=== PATIENT | male | born 1935 | race Caucasian/White ===

== ENCOUNTER 2017-12-07 05:45 | Inpatient (IN) ==
[2017-12-07] MEDS ORDERED: POTASSIUM CHLORIDE RIDER 10 MEQ in PREMIX 1 EACH IV PRN (07:39)
[2017-12-07] MEDS ORDERED: diphenhydrAMINE CAP 25 MG CAPSULE PO ONE (07:39)
[2017-12-07] MEDS ORDERED: MAGNESIUM SULF RIDER 2 GM in PREMIX 1 EACH IV PRN (07:39)
[2017-12-07] MEDS ORDERED: DIAZEPAM 5 MG TABLET PO ONE (07:39)
[2017-12-07] MEDS ORDERED: ASPIRIN 325 MG TABLET PO ONE (07:40)
[2017-12-07] MEDS ORDERED: DEXTROSE 5% NACL 0.22% 1,000 ML IV SCH (08:00)
[2017-12-07] MEDS ORDERED: DEXTROSE 5% NACL 0.45% 1,000 ML IV SCH (08:00)
[2017-12-07] MEDS ORDERED: HEPARIN/NACL 0.9% 2 UNITS/ML 2,000 ML IV ONE (09:22)
[2017-12-07] MEDS ORDERED: LIDOCAINE 2%/EPI 20 ML VIAL ONE (09:34)
[2017-12-07] MEDS ORDERED: VERAPAMIL 5 MG/2 ML VIAL ONE (09:43)
[2017-12-07] MEDS ORDERED: NITROGLYCERIN DRIP 50 MG/250 ML BOTTLE IV ONE (09:43)
[2017-12-07] MEDS ORDERED: LIDOCAINE 1% 20 ML VIAL ONE (10:25)
[2017-12-07] MEDS ORDERED: fentaNYL 100 MCG/2 ML VIAL ONE (10:29)
[2017-12-07] MEDS ORDERED: MIDAZOLAM 2 MG/2 ML VIAL ONE (10:29)
[2017-12-07] MEDS ORDERED: ENOXAPARIN 60 MG/0.6 ML SYRINGE ONE (10:54)
[2017-12-07] MEDS ORDERED: ATROPINE 1 MG/10 ML SYRINGE ONE (11:05)
[2017-12-07] MEDS ORDERED: DOPamine 800 MG/250 ML PREMIX IV ONE (11:05)
[2017-12-07] MEDS ORDERED: DOPamine 800 MG/250 ML PREMIX IV SCH (11:08)
[2017-12-07] MEDS ORDERED: EPTIFIBATIDE 75 MG/100 ML BOTTLE IV ONE (11:24)
[2017-12-07] MEDS ORDERED: EPTIFIBATIDE 20,000 MCG/10 ML VIAL ONE (11:24)
[2017-12-07] MEDS ORDERED: EPTIFIBATIDE 75 MG/100 ML BOTTLE IV SCH (11:33)
[2017-12-07] MEDS ORDERED: CLOPIDOGREL 300 MG TABLET ONE (11:48)
[2017-12-07] MEDS ORDERED: HYDROmorphone 2 MG/1 ML VIAL IV PRN (12:21)
[2017-12-07] MEDS ORDERED: ONDANSETRON 4 MG/2 ML VIAL IV PRN (12:21)
[2017-12-07] MEDS ORDERED: guaiFENesin/DM ER 600-30 MG TABLET PO PRN (13:23)
[2017-12-07] MEDS ORDERED: ACETAMINOPHEN 325 MG TABLET PO PRN (13:23)
[2017-12-07] MEDS ORDERED: BISACODYL 5 MG TABLET PO PRN (13:23)
[2017-12-07] MEDS: CARVEDILOL 12.5 MG TABLET PO SCH (17:05)
[2017-12-07] MEDS ORDERED: ZALEPLON 5 MG CAPSULE PO SCH (21:00)
[2017-12-07] MEDS ORDERED: metFORMIN 500 MG TABLET PO SCH (21:00)
[2017-12-07] MEDS ORDERED: SIMVASTATIN 20 MG TABLET PO SCH (21:00)
[2017-12-07] MEDS: MULTIVITAMIN (BEROCCA) TABLET PO SCH (21:07)
[2017-12-07] MEDS: sitaGLIPtin 25 MG TABLET PO SCH (21:08)
[2017-12-08 05:21] LABS: Basophils % 0.5 % (0.0-0.8); Eosinophils # 0.2 10*3/uL (0.0-0.87); Eosinophils % 3.3 % (0.00-10.9); Hematocrit 41.5 VOL% (42.0-52.0); Immature Granulocytes % 0.3 %; Immature Granulocytes Absolute 0.02 #; Lymphocytes # 1.9 10*3/uL (1.4-4.0); Lymphocytes % 26.6 % (21.2-54.2); Mean Corpuscular HGB Conc 33.7 GM/DL (32-36); Mean Corpuscular Hemoglobin 29 PG (27-34); Mean Corpuscular Volume 85.7 FL (87-102); Mean Platelet Volume 10.2 FL (9.6-12.0); Monocytes # 0.7 10*3/uL (0.11-0.8); Monocytes % 9.2 % (1.7-12.7); Neutrophils # 4.4 10*3/uL (1.4-7.4); Neutrophils % 60.1 % (38.7-73.9); Platelet Count 216 T/CUMM (130-400); Red Blood Count 4.84 MC/CUMM (3.8-5.5); Red Cell Distribution Width 13.3 % (9.3-17.3); White Blood Count 7.3 T/CUMM (4-12)
[2017-12-08 06:00] LABS: Calcium 8.5 MG/DL (8.5-10.1); Osmolality,Calculated 282.5 MOS/KG (273-304); Potassium 4.1 MMOL/L (3.5-5.1); Troponin I Only 0.018 NG/ML (0.00-0.045)
[2017-12-08] MEDS: MULTIVITAMIN (BEROCCA) TABLET PO SCH (08:27)
[2017-12-08] MEDS: CARVEDILOL 12.5 MG TABLET PO SCH (08:27)
[2017-12-08] MEDS: sitaGLIPtin 25 MG TABLET PO SCH (08:31)
[2017-12-08] MEDS ORDERED: FLUTICASONE 50 MCG NASAL SPRAY 16 GM BOTTLE BOTH NARES SCH (09:00)
[2017-12-08] MEDS ORDERED: NAPROXEN 250 MG TABLET PO SCH (09:00)
[2017-12-08] MEDS ORDERED: LORATADINE 10 MG TABLET PO SCH (09:00)
[2017-12-08] MEDS ORDERED: GLIMEPIRIDE 2 MG TABLET PO SCH (09:00)
[2017-12-08] MEDS ORDERED: FUROSEMIDE 20 MG TABLET PO SCH (09:00)
[2017-12-08] MEDS ORDERED: PANTOPRAZOLE 40 MG TABLET PO SCH (09:00)
[2017-12-08] MEDS ORDERED: FEXOFENADINE 180 MG TABLET PO SCH (09:00)
[2017-12-08] MEDS ORDERED: LOSARTAN 50 MG TABLET PO SCH (09:00)
[2017-12-08] MEDS ORDERED: ASPIRIN EC 81 MG TABLET PO SCH (09:00)
[2017-12-08] MEDS ORDERED: CHOLECALCIFEROL 1,000 UNIT TABLET PO SCH (09:00)
[2017-12-08] MEDS ORDERED: CITALOPRAM 20 MG TABLET PO SCH (09:00)
[2017-12-08] MEDS ORDERED: NON-FORMULARY MEDICATION (Omeprazole [Prilosec] 20 MG) PO SCH (09:00)
[2017-12-08] MEDS ORDERED: CLOPIDOGREL 75 MG TABLET PO SCH (09:00)
[2017-12-08 09:53] VITALS: BP 154/65
== END 2017-12-08 09:48 | disposition home or self-care (01) | DRG 247 ==
LOC: N.CC 05:45 → N.CL 05:45 → N.CC 12:36 → N.2E 12:56
PROVIDERS: ADMIT Internal Medicine Interventional Cardiology; ATTEND Internal Medicine Interventional Cardiology
PROC: CLCCHCL (ICD-10-PCS; 2017-12-07 10:45)

== ENCOUNTER 2022-10-25 04:55 | Observation (INO) ==
[2022-10-25 05:48] LABS: Basophils % 0.4 % (0.0-0.8); Eosinophils # 0.1 10*3/uL (0.0-0.87); Eosinophils % 1.1 % (0.00-10.9); Hematocrit 44.4 VOL% (42.0-52.0); Hemoglobin 14.7 GM/DL (14.0-18.0); Immature Granulocytes % 0.5 %; Immature Granulocytes Absolute 0.04 #; Lymphocytes # 0.7 10*3/uL (1.4-4.0); Lymphocytes % 9.2 % (21.2-54.2); Mean Corpuscular HGB Conc 33.1 GM/DL (32-36); Mean Corpuscular Volume 87.2 FL (87-102); Mean Platelet Volume 10.2 FL (9.6-12.0); Monocytes # 1.2 10*3/uL (0.11-0.8); Monocytes % 14.5 % (1.7-12.7); Neutrophils % 74.3 % (38.7-73.9); Platelet Count 209 T/CUMM (130-400); Red Blood Count 5.09 MC/CUMM (3.8-5.5); Red Cell Distribution Width 13.8 % (9.3-17.3); White Blood Count 7.9 T/CUMM (4-12)
[2022-10-25 05:52] LABS: Mucus,Urine Occasional /LPF (Occasional); Squamous Epithelial Cell,Urine Occasional /HPF (0-10); Urine Appearance Clear (Clear); Urine Color Yellow (Yellow); Urine Specific Gravity 1.015 (1.001-1.035)
[2022-10-25 05:53] LABS: Bilirubin,Urine Negative (Negative); Blood, Urine Trace mg/dL (Negative); Glucose,Urine (UA) 500 mg/dL (Negative); Ketones,Urine 15 mg/dL (Negative); Nitrite,Urine Negative (Negative); Protein,Urine Negative (Negative); Urine Urobilinogen 0.2 eU/dL (<2.0)
[2022-10-25 05:54] LABS: Arterial Base Excess iSTAT -1 MMOL/L (-2.5-2.5); Arterial Bicarbonate iSTAT 23.2 MMOL/L (20-26); Arterial O2 Saturation iSTAT 95 % (95-100); Arterial PCO2 iSTAT 35 MM HG (35-48); Arterial PO2 iSTAT 71 MM HG (80-95); Arterial Total CO2 iSTAT 24 MMO/L (23-27); Arterial pH iSTAT 7.429 (7.35-7.45)
[2022-10-25 05:55] LABS: PT Patient Result 10.6 SECS (10.1-12.1)
[2022-10-25 05:58] LABS: Albumin 3.5 G/DL (3.4-5.0); Bilirubin,Total 1.4 MG/DL (0.20-1.00); Calcium 8.3 MG/DL (8.5-10.1); Osmolality,Calculated 281.8 MOS/KG (273-304); Potassium 4.2 MMOL/L (3.5-5.1); Total Protein 6.5 G/DL (6.4-8.2)
[2022-10-25] MEDS ORDERED: GLUCAGON 1 MG VIAL IM PRN (08:24)
[2022-10-25] MEDS ORDERED: ONDANSETRON 4 MG/2 ML VIAL IV PRN (08:24)
[2022-10-25] MEDS ORDERED: ACETAMINOPHEN 325 MG TABLET PO PRN (08:24)
[2022-10-25] MEDS ORDERED: DEXTROSE 10% 250 ML BAG IV PRN (08:33)
[2022-10-25] MEDS: DOCUSATE SODIUM 100 MG CAPSULE PO SCH ×2 (09:20→21:39)
[2022-10-25] MEDS: PANTOPRAZOLE 40 MG TABLET PO SCH (09:20)
[2022-10-25] MEDS: SODIUM CHLORIDE 0.9% 1,000 ML IV SCH (09:21)
[2022-10-25] MEDS ORDERED: traZODone 50 MG TABLET PO PRN (09:36)
[2022-10-25] MEDS: DONEPEZIL 5 MG TABLET PO SCH (21:39)
[2022-10-25] MEDS: TAMSULOSIN 0.4 MG CAPSULE PO SCH (21:39)
[2022-10-25] MEDS: GABAPENTIN 300 MG CAPSULE PO SCH (21:40)
[2022-10-25] MEDS: GLIMEPIRIDE 4 MG TABLET PO SCH (21:40)
[2022-10-25] MEDS: COLESTIPOL 1 GM TABLET PO SCH (21:40)
[2022-10-25] MEDS: carvediloL 12.5 MG TABLET PO SCH (21:40)
[2022-10-25] MEDS: MULTIVITAMIN (OCUVITE) TABLET PO SCH (21:40)
[2022-10-25] MEDS: cycloSPORINE OPH EMUL 1 VIAL BOTH EYES SCH (21:41)
[2022-10-25] MEDS: IPRATROPIUM 0.03% NASAL SPRAY 30 ML BOTTLE BOTH NARES SCH (21:41)
[2022-10-26] MEDS: SODIUM CHLORIDE 0.9% 1,000 ML IV SCH ×2 (03:10→18:39)
[2022-10-26 04:09] LABS: Basophils % 0.5 % (0.0-0.8); Eosinophils # 0.1 10*3/uL (0.0-0.87); Eosinophils % 1.3 % (0.00-10.9); Hemoglobin 13.8 GM/DL (14.0-18.0); Immature Granulocytes % 0.3 %; Immature Granulocytes Absolute 0.02 #; Lymphocytes # 1.2 10*3/uL (1.4-4.0); Lymphocytes % 18.9 % (21.2-54.2); Mean Corpuscular HGB Conc 32.9 GM/DL (32-36); Mean Corpuscular Volume 88.4 FL (87-102); Monocytes # 1.2 10*3/uL (0.11-0.8); Monocytes % 19.1 % (1.7-12.7); Neutrophils % 59.9 % (38.7-73.9); Platelet Count 188 T/CUMM (130-400); Red Blood Count 4.75 MC/CUMM (3.8-5.5); Red Cell Distribution Width 14.1 % (9.3-17.3); White Blood Count 6.3 T/CUMM (4-12)
[2022-10-26 04:32] LABS: Albumin 3.2 G/DL (3.4-5.0); Bilirubin,Total 1.2 MG/DL (0.20-1.00); Calcium 8.2 MG/DL (8.5-10.1); Potassium 3.8 MMOL/L (3.5-5.1); Total Protein 6.4 G/DL (6.4-8.2)
[2022-10-26 04:41] LABS: Eosinophils 3 % (0-10); Hypochromia Slight; Lymphocytes 12 % (20-55); Microcytosis Slight; Platelet Estimate Adequate; Total Cells Counted 100
[2022-10-26] MEDS ORDERED: INSULIN GLARGINE 100 UNIT/ML SUBCUT SCH (09:00)
[2022-10-26] MEDS: PANTOPRAZOLE 40 MG TABLET PO SCH (10:47)
[2022-10-26] MEDS: GLIMEPIRIDE 4 MG TABLET PO SCH ×2 (10:47→21:36)
[2022-10-26] MEDS: COLESTIPOL 1 GM TABLET PO SCH ×2 (10:47→21:35)
[2022-10-26] MEDS: CLOPIDOGREL 75 MG TABLET PO SCH (10:48)
[2022-10-26] MEDS: SIMVASTATIN 40 MG TABLET PO SCH (10:48)
[2022-10-26] MEDS: LOSARTAN 25 MG TABLET PO SCH (10:49)
[2022-10-26] MEDS: ESCITALOPRAM 10 MG TABLET PO SCH (10:49)
[2022-10-26] MEDS: DOCUSATE SODIUM 100 MG CAPSULE PO SCH ×2 (10:49→21:35)
[2022-10-26] MEDS: ASPIRIN EC 81 MG TABLET PO SCH (10:50)
[2022-10-26] MEDS: DAPAGLIFLOZIN 5 MG TABLET PO SCH (10:50)
[2022-10-26] MEDS: carvediloL 12.5 MG TABLET PO SCH ×2 (10:51→21:36)
[2022-10-26] MEDS: FUROSEMIDE 20 MG TABLET PO SCH (10:51)
[2022-10-26] MEDS: MULTIVITAMIN (OCUVITE) TABLET PO SCH ×2 (10:51→21:36)
[2022-10-26] MEDS: cycloSPORINE OPH EMUL 1 VIAL BOTH EYES SCH ×2 (10:52→21:35)
[2022-10-26] MEDS: IPRATROPIUM 0.03% NASAL SPRAY 30 ML BOTTLE BOTH NARES SCH ×2 (10:55→21:36)
[2022-10-26] MEDS ORDERED: ENOXAPARIN 40 MG/0.4 ML SYRINGE SUBCUT SCH (15:00)
[2022-10-26] MEDS: TAMSULOSIN 0.4 MG CAPSULE PO SCH (21:35)
[2022-10-26] MEDS: GABAPENTIN 300 MG CAPSULE PO SCH (21:36)
[2022-10-26] MEDS: DONEPEZIL 5 MG TABLET PO SCH (21:36)
[2022-10-27] MEDS: SODIUM CHLORIDE 0.9% 1,000 ML IV SCH (05:41)
[2022-10-27 08:19] VITALS: BP 123/73
[2022-10-27] MEDS: CLOPIDOGREL 75 MG TABLET PO SCH (09:01)
[2022-10-27] MEDS: MULTIVITAMIN (OCUVITE) TABLET PO SCH (09:01)
[2022-10-27] MEDS: COLESTIPOL 1 GM TABLET PO SCH (09:01)
[2022-10-27] MEDS: FUROSEMIDE 20 MG TABLET PO SCH (09:01)
[2022-10-27] MEDS: PANTOPRAZOLE 40 MG TABLET PO SCH (09:02)
[2022-10-27] MEDS: DAPAGLIFLOZIN 5 MG TABLET PO SCH (09:02)
[2022-10-27] MEDS: LOSARTAN 25 MG TABLET PO SCH (09:02)
[2022-10-27] MEDS: carvediloL 12.5 MG TABLET PO SCH (09:02)
[2022-10-27] MEDS: ESCITALOPRAM 10 MG TABLET PO SCH (09:02)
[2022-10-27] MEDS: GLIMEPIRIDE 4 MG TABLET PO SCH (09:02)
[2022-10-27] MEDS: DOCUSATE SODIUM 100 MG CAPSULE PO SCH (09:02)
[2022-10-27] MEDS: ASPIRIN EC 81 MG TABLET PO SCH (09:02)
[2022-10-27] MEDS: SIMVASTATIN 40 MG TABLET PO SCH (09:02)
== END 2022-10-27 10:07 | disposition home health service (06) ==
LOC: N.ED 04:55 → N.EDINP 04:55 → N.TELES 14:59
PROVIDERS: ADMIT Internal Medicine; ATTEND Internal Medicine